=== PATIENT | male | born 1985 | race Caucasian/White ===

== ENCOUNTER 2016-09-16 14:55 | Inpatient (IN) | payer OTHER ==
[2016-09-16 16:54] VITALS: BMI 24.3
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
[2016-09-16] MEDS ORDERED: ACETAMINOPHEN 325 MG TABLET (FP) PO PRN (17:48)
[2016-09-16] MEDS ORDERED: P-EPHED 60MG/TRIPROLIDI 2.5MG TABLET PO PRN (17:48)
[2016-09-16] MEDS ORDERED: guaiFENesin/D-METHORPHAN HB 10 ML UNIT-DOSE CUPS PO PRN (17:48)
[2016-09-16] MEDS ORDERED: LOPERAMIDE HCL 2 MG CAPSULE PO PRN (17:48)
[2016-09-16] MEDS ORDERED: MENTHOL/PHENOL 1 EACH UD MM PRN (17:48)
[2016-09-16] MEDS ORDERED: MAGNESIUM HYDROX 2400MG/30ML ORAL SUSPENSION 30 ML CUP PO PRN (17:48)
[2016-09-16] MEDS ORDERED: MAG HYDROX/AL HYDROX/SIMETH 30 ML UNIT-DOSE CUP PO PRN (17:48)
[2016-09-16] MEDS ORDERED: IBUPROFEN 400 MG TABLET (FP) PO PRN (17:48)
[2016-09-16] MEDS ORDERED: diphenhydrAMINE HCL 50 MG CAPSULE PO PRN (17:48)
[2016-09-16] MEDS ORDERED: MAGNESIUM CITRATE 300 ML BOTTLE PO PRN (17:48)
[2016-09-16] MEDS ORDERED: NICOTINE POLACRILEX 4 MG GUM BC PRN (17:48)
[2016-09-16] MEDS ORDERED: ALBUTEROL SO4 6.7 GM HFA INHALER IH PRN (17:53)
[2016-09-16] MEDS ORDERED: diazePAM 5 MG TABLET PO ONE (18:45)
[2016-09-16] MEDS ORDERED: METHADONE HCL 10 MG TABLET (FOR DETOX USE ONLY) PO ONE ×2 (18:45→23:00)
--- NOTE | 2016-09-16 18:48 | CONSULT ---
[facility] Psychiatric Consult - Data Date of interview: 09/16/16 Admission source: [facility] Identifying data: Readmission to [facility] for this ## y/o male seeking detox treatment for heroin,cocaine and alcohol dependence.Patient is single,a father of one,domiciled,unemployed and supported on food stamps. Substance Abuse History: - Smoking Cessation. Smoking history: Current some day smoker. Have you smoked in the past 12 months: Yes. Aproximately how many cigarettes per day: 15. Cigars Per Day: 0. Hx Chewing Tobacco Use: No. Initiated information on smoking cessation: Yes. 'Breaking Loose' booklet given : 09/16/16. - Substance & Tx. History. Hx Alcohol Use: Yes. Hx Substance Use : Yes. Substance Use Type: Alcohol, Cocaine, Opiates. Hx Substance Use Treatment: Yes. - Substances Abused. Heroin. Route: Injection. Frequency : Daily. Amount used: 2 BUNDLES. Age of first use: 19. Date of Last Use: 02/23. Cocaine. Route: Injection. Frequency: Daily. Amount used: 2-3 bags. Age of first use: 19. Date of Last Use: 09/16/16. Alcohol. Route: Oral. Frequency: Daily. Amount used: PINT [id number] BEER. Age of first use: 19. Date of Last Use: 09/16/16. Confirmed by patient. Medical History: Hepatitis C and bronchial asthma.History of orthosurgery for fracture of right wrist (2001). Psychiatric History: Onset of psychological imbalance : age 7.Past history of Special Education.Patient reports a remote history of psychiatric hospitalizations (years ago).Diagnosed with Bipolar Disorder.Used to maintained on valproate and seroquel.Mr Garland indicates that he stopped taking seroquel due to intolerable side effects.Has been lost to follow up for several months.Not interested in resuming psychotropic medications except for zolpidem at bedtime.Not in regular OPD care since 2008 (self-report).Patient denies history of suicide attempts.No longer on methadone maintenance. Physical/Sexual Abuse/Trauma History: Patient denies. Additional Comment: Urine Drug Screen Results: HILL-Cocaine, OPI-Opiates.Noted. Mental Status Exam - Mental Status Exam Alert and Oriented to: Time, Place, Person Cognitive Function: Good Patient Appearance: Well Groomed Mood: Hopeful, Euthymic Affect: Appropriate, Normal Range Patient Behavior: Fatigued, Appropriate, Cooperative Speech Pattern: Clear, Appropriate Voice Loudness: Normal Thought Process: Goal Oriented Thought Disorder: Not Present Hallucinations: Denies Suicidal Ideation: Denies Homicidal Ideation: Denies Insight/Judgement: Poor Sleep: Poorly, Difficulty falling asleep Appetite: Good Muscle strength/Tone: Normal Gait/Station: Normal Psychiatric Findings - Problem List ([place] 1, 2,3) (1) Alcohol dependence with uncomplicated withdrawal Current Visit: Yes Status: Acute (2) Opioid dependence with withdrawal Current Visit: Yes Status: Acute (3) Cocaine dependence, uncomplicated Current Visit: Yes Status: Acute (4) Nicotine dependence Current Visit: Yes Status: Acute Qualifiers: Nicotine product type: cigarettes (5) Substance induced mood disorder Current Visit: Yes Status: Acute (6) Hepatitis C Current Visit: Yes Status: Resolved Qualifiers: Viral hepatitis chronicity: chronic Hepatic coma status: without hepatic coma Qualified Code(s): B18.2 - Chronic viral hepatitis C (7) Insomnia Current Visit: Yes Status: Acute - Initial Treatment Plan Initial Treatment Plan: Psychoeducation.Detoxification.Ambien 10 mg po hs.Patient is made aware of potential for parasomnias.He agrees with careplan.Observation.
[2016-09-16] MEDS: THIAMINE HCL 100 MG TABLET (FP) PO SCH (22:14)
[2016-09-16] MEDS: diazePAM 5 MG TABLET PO SCH (22:14)
[2016-09-16] MEDS: ZOLPIDEM TARTRATE 5 MG TABLET PO PRN (22:14)
[2016-09-17 03:02] LABS: URINE APPEARANCE CLEAR; URINE BILIRUBIN NEGATIVE (NEGATIVE); URINE BLOOD NEGATIVE (NEGATIVE); URINE COLOR YELLOW; URINE GLUCOSE (UA) NEGATIVE (NEGATIVE); URINE KETONE NEGATIVE (NEGATIVE); URINE LEUK ESTERASE NEGATIVE (NEGATIVE); URINE NITRITE NEGATIVE (NEGATIVE); URINE PROTEIN NEGATIVE (NEGATIVE); URINE UROBILINOGEN NEGATIVE E.U./dl (0.2-1.0)
[2016-09-17] MEDS: diazePAM 5 MG TABLET PO SCH ×3 (05:35→22:12)
[2016-09-17] MEDS ORDERED: METHADONE HCL 10 MG TABLET (FOR DETOX USE ONLY) PO SCH (10:00)
[2016-09-17 10:01] LABS: MCH 28.6 pg (25.7-33.7); MCHC 33.4 g/dl (32.0-35.9); MEAN CELL VOLUME 85.4 fl (80-96); MEAN PLT VOLUME 8.6 fl (7.5-11.1); PLATELET COUNT 197 K/MM3 (134-434); RDW 13.3 % (11.9-15.9); WHITE BLOOD COUNT 5.2 K/mm3 (4.0-10.0)
[2016-09-17] MEDS: PRENATAL VITAMINS W/ FOLIC ACID TABLET (FP) PO SCH (10:09)
[2016-09-17] MEDS: diazePAM 5 MG TABLET PO PRN ×2 (10:09→17:07)
[2016-09-17] MEDS: NICOTINE 21 MG/24 HOURS TOPICAL PATCH TD SCH (10:09)
[2016-09-17 10:37] LABS: ALBUMIN 3.9 g/dl (3.4-5.0); ALK PHOS 66 U/L (45-117); ANION GAP 10 (8-16); BILIRUBIN,TOTAL 0.7 mg/dL (0.2-1.0); CALCIUM 8.7 mg/dL (8.5-10.1); CO2 27 mmol/L (21-32); COCKROFT - GAULT 154.07; CREATININE 0.7 mg/dL (0.7-1.3); GLUCOSE,RANDOM 96 mg/dL (74-106); SGOT/AST 22 U/L (15-37); SGPT/ALT 22 U/L (12-78); TOT PROT 6.7 g/dl (6.4-8.2)
--- NOTE | 2016-09-17 12:17 | PN ---
S CIWA - CIWA Score Nausea/Vomitin-No Nausea/No Vomiting Muscle Tremors: 4-Moderate,w/Arms Extend Anxiety: 3 Agitation: 2 Paroxysmal Sweats: 3 Orientation: 0-Oriented Tacttile Disturbances: 1-Very Mild Itch/Numbness Auditory Disturbances: 2-Mild Harshness/Frighten Visual Disturbances: 2-Mild Sensitivity Headache: 0-None Present CIWA-Ar Total Score: 17 BHS COWS - Scale Resting Pulse: 0= [place] 80 or Below Sweatin=Flushed/Facial Moisture Restless Observation: 1= Difficult to Sit Still Pupil Size: 0= Normal to Room Light Bone or Joint Aches: 2= Severe Diffuse Aches Runny Nose/ Eye Tearin= Nasal Congestion GI Upset > 30mins: 1= Stomach Cramp Tremor Observation of Outstretched Hands: 2= Slight Tremor Visible Yawning Observation: 1= 1-2x During Session Anxiety or Irritability: 2=Irritable/Anxious Goose Flesh Skin: 3=Piloerection COWS Score: 15 BHS Progress Note (SOAP) Subjective: Tremors, Sweating, Interrupted sleep, Body aches. Objective: PT. A & O X 3, OBSERVED AMBULATING ON UNIT. 09/17/16 12:15 Vital Signs Temperature 97.6 F 09/17/16 09:16 Pulse Rate 67 09/17/16 09:16 Respiratory Rate 18 09/17/16 09:16 Blood Pressure 113/70 09/17/16 09:16 O2 Sat by Pulse Oximetry (%) Laboratory Last Values WBC 5.2 K/mm3 (4.0-10.0) 09/17/16 07:00 RBC 4.27 M/mm3 (4.00-5.60) 09/17/16 07:00 Hgb 12.2 GM/dL (11.7-16.9) 09/17/16 07:00 Hct 36.4 % (35.4-49) 09/17/16 07:00 MCV 85.4 fl (80-96) 09/17/16 07:00 MCHC 33.4 g/dl (32.0-35.9) 09/17/16 07:00 RDW 13.3 % (11.9-15.9) 09/17/16 07:00 Plt Count 197 K/MM3 (134-434) 09/17/16 07:00 MPV 8.6 fl (7.5-11.1) 09/17/16 07:00 Sodium 141 mmol/L (136-145) 09/17/16 07:00 Potassium 4.0 mmol/L (3.5-5.1) 09/17/16 07:00 Chloride 104 mmol/L (98-107) 09/17/16 07:00 Carbon Dioxide 27 mmol/L (21-32) 09/17/16 07:00 Anion Gap 10 (8-16) 09/17/16 07:00 BUN 10 mg/dL (7-18) D 09/17/16 07:00 Creatinine 0.7 mg/dL (0.7-1.3) 09/17/16 07:00 Creat Clearance w eGFR > 60 (>60) 09/17/16 07:00 Random Glucose 96 mg/dL (74-106) 09/17/16 07:00 Calcium 8.7 mg/dL (8.5-10.1) 09/17/16 07:00 Total Bilirubin 0.7 mg/dL (0.2-1.0) 09/17/16 07:00 AST 22 U/L (15-37) D 09/17/16 07:00 ALT 22 U/L (12-78) D 09/17/16 07:00 Alkaline Phosphatase 66 U/L (45-117) D 09/17/16 07:00 Total Protein 6.7 g/dl (6.4-8.2) 09/17/16 07:00 Albumin 3.9 g/dl (3.4-5.0) 09/17/16 07:00 Urine Color Yellow 09/16/16 22:57 Urine Appearance Clear 09/16/16 22:57 Urine pH 6.0 (5.0-8.0) 09/16/16 22:57 Urine Protein Negative (NEGATIVE) 09/16/16 22:57 Urine Glucose (UA) Negative (NEGATIVE) 09/16/16 22:57 Urine Ketones Negative (NEGATIVE) 09/16/16 22:57 Urine Blood Negative (NEGATIVE) 09/16/16 22:57 Urine Nitrite Negative (NEGATIVE) 09/16/16 22:57 Urine Bilirubin Negative (NEGATIVE) 09/16/16 22:57 Urine Urobilinogen Negative E.U./dl (0.2-1.0) 09/16/16 22:57 Ur Leukocyte Esterase Negative (NEGATIVE) 09/16/16 22:57 LABS NOTED. 09/17/16 12:17 Assessment: 09/17/16 12:17 WITHDRAWAL SYMPTOMS. Plan: CONTINUE DETOX. ADVISED PATIENT TO FOLLOW-UP WITH MUSIC TEACHER AFTER DISCHARGE FROM DETOX FOR GENERAL MEDICAL ASSESSMENT.
--- NOTE | 2016-09-17 12:51 | EKG ---
Test Reason : Blood Pressure : / mmHG Vent. Rate : 078 BPM Atrial Rate : 078 BPM P-R Int : 184 ms QRS Dur : 096 ms QT Int : 362 ms P-R-T Axes : 049 057 053 degrees QTc Int : 412 ms NORMAL SINUS RHYTHM NORMAL ECG NO PREVIOUS ECGS AVAILABLE Confirmed by PAVAN BLANCHARD MD ([id number]) on 09/17/2016 12:50:50 PM Referred By: Confirmed By:PAVAN BLANCHARD MD
[2016-09-17] MEDS: ZOLPIDEM TARTRATE 5 MG TABLET PO PRN (22:12)
[2016-09-17] MEDS: THIAMINE HCL 100 MG TABLET (FP) PO SCH (22:12)
[2016-09-18] MEDS: diazePAM 5 MG TABLET PO PRN ×4 (00:29→17:18)
[2016-09-18] MEDS: NICOTINE 21 MG/24 HOURS TOPICAL PATCH TD SCH (10:11)
[2016-09-18] MEDS: PRENATAL VITAMINS W/ FOLIC ACID TABLET (FP) PO SCH (10:11)
[2016-09-18] MEDS: diazePAM 5 MG TABLET PO SCH ×2 (10:12→22:09)
[2016-09-18] MEDS: METHADONE HCL 5 MG TABLET (FOR DETOX USE ONLY) PO SCH (10:12)
--- NOTE | 2016-09-18 12:53 | PN ---
[facility] CIWA - CIWA Score Nausea/Vomitin-Mild Nausea/No Vomiting Muscle Tremors: 4-Moderate,w/Arms Extend Anxiety: 4-Mod. Anxious/Guarded Agitation: 3 Paroxysmal Sweats: 3 Orientation: 0-Oriented Tacttile Disturbances: 2-Mild Itch/Numbness/Burn Auditory Disturbances: 0-None Visual Disturbances: 2-Mild Sensitivity Headache: 0-None Present CIWA-Ar Total Score: 19 S COWS - Scale Resting Pulse: 0= [place] 80 or Below Sweatin=Flushed/Facial Moisture Restless Observation: 1= Difficult to Sit Still Pupil Size: 0= Normal to Room Light Bone or Joint Aches: 1= Mild Discomfort Runny Nose/ Eye Tearin= Nasal Congestion GI Upset > 30mins: 1= Stomach Cramp Tremor Observation of Outstretched Hands: 2= Slight Tremor Visible Yawning Observation: 1= 1-2x During Session Anxiety or Irritability: 2=Irritable/Anxious Goose Flesh Skin: 3=Piloerection COWS Score: 14 S Progress Note (SOAP) Subjective: Tremors, Sweating. Objective: PT. A & O X 3, OBSERVED AMBULATING ON UNIT. 09/18/16 12:51 Vital Signs Temperature 96.1 F L 09/18/16 10:04 Pulse Rate 64 09/18/16 10:04 Respiratory Rate 18 09/18/16 10:04 Blood Pressure 112/73 09/18/16 10:04 O2 Sat by Pulse Oximetry (%) Laboratory Last Values WBC 5.2 K/mm3 (4.0-10.0) 09/17/16 07:00 RBC 4.27 M/mm3 (4.00-5.60) 09/17/16 07:00 Hgb 12.2 GM/dL (11.7-16.9) 09/17/16 07:00 Hct 36.4 % (35.4-49) 09/17/16 07:00 MCV 85.4 fl (80-96) 09/17/16 07:00 MCHC 33.4 g/dl (32.0-35.9) 09/17/16 07:00 RDW 13.3 % (11.9-15.9) 09/17/16 07:00 Plt Count 197 K/MM3 (134-434) 09/17/16 07:00 MPV 8.6 fl (7.5-11.1) 09/17/16 07:00 Sodium 141 mmol/L (136-145) 09/17/16 07:00 Potassium 4.0 mmol/L (3.5-5.1) 09/17/16 07:00 Chloride 104 mmol/L (98-107) 09/17/16 07:00 Carbon Dioxide 27 mmol/L (21-32) 09/17/16 07:00 Anion Gap 10 (8-16) 09/17/16 07:00 BUN 10 mg/dL (7-18) D 09/17/16 07:00 Creatinine 0.7 mg/dL (0.7-1.3) 09/17/16 07:00 Creat Clearance w eGFR > 60 (>60) 09/17/16 07:00 Random Glucose 96 mg/dL (74-106) 09/17/16 07:00 Calcium 8.7 mg/dL (8.5-10.1) 09/17/16 07:00 Total Bilirubin 0.7 mg/dL (0.2-1.0) 09/17/16 07:00 AST 22 U/L (15-37) D 09/17/16 07:00 ALT 22 U/L (12-78) D 09/17/16 07:00 Alkaline Phosphatase 66 U/L (45-117) D 09/17/16 07:00 Total Protein 6.7 g/dl (6.4-8.2) 09/17/16 07:00 Albumin 3.9 g/dl (3.4-5.0) 09/17/16 07:00 Urine Color Yellow 09/16/16 22:57 Urine Appearance Clear 09/16/16 22:57 Urine pH 6.0 (5.0-8.0) 09/16/16 22:57 Ur Specific [place] 1.015 (1.005-1.025) 09/16/16 22:57 Urine Protein Negative (NEGATIVE) 09/16/16 22:57 Urine Glucose (UA) Negative (NEGATIVE) 09/16/16 22:57 Urine Ketones Negative (NEGATIVE) 09/16/16 22:57 Urine Blood Negative (NEGATIVE) 09/16/16 22:57 Urine Nitrite Negative (NEGATIVE) 09/16/16 22:57 Urine Bilirubin Negative (NEGATIVE) 09/16/16 22:57 Urine Urobilinogen Negative E.U./dl (0.2-1.0) 09/16/16 22:57 Ur Leukocyte Esterase Negative (NEGATIVE) 09/16/16 22:57 RPR Titer Nonreactive (NONREACTIVE) 09/17/16 07:00 LABS NOTED. Assessment: 09/18/16 12:52 WITHDRAWAL SYMPTOMS. Plan: CONTINUE DETOX. PATIENT ADVISED TO FOLLOW-UP WITH COATING LINE WORKER AFTER DISCHARGE FROM DETOX FOR GENERAL MEDICAL ASSESSMENT.
--- NOTE | 2016-09-18 17:42 | PN ---
BHS Progress Note Note: pt refused to complete detox signed out AMA.
--- NOTE | 2016-09-18 17:42 | DS ---
[facility] Detox Discharge Summary Admission Date: 09/16/16 - Physical Exam Results Vital Signs: Vital Signs Temperature 97.4 F L 09/18/16 17:06 Pulse Rate 58 L 09/18/16 17:06 Respiratory Rate 16 09/18/16 17:06 Blood Pressure 102/62 09/18/16 17:06 O2 Sat by Pulse Oximetry (%) - Medication Discharge Medications: Ambulatory Orders NK [No Known Home Medication] 09/16/16
[2016-09-18] MEDS: ZOLPIDEM TARTRATE 5 MG TABLET PO PRN (22:09)
[2016-09-18] MEDS: THIAMINE HCL 100 MG TABLET (FP) PO SCH (22:09)
[2016-09-19] MEDS: diazePAM 5 MG TABLET PO PRN (08:45)
[2016-09-19] MEDS: METHADONE HCL 5 MG TABLET (FOR DETOX USE ONLY) PO SCH (10:08)
[2016-09-19] MEDS: NICOTINE 21 MG/24 HOURS TOPICAL PATCH TD SCH (10:08)
[2016-09-19] MEDS: diazePAM 5 MG TABLET PO SCH (10:08)
[2016-09-19] MEDS: PRENATAL VITAMINS W/ FOLIC ACID TABLET (FP) PO SCH (10:08)
[2016-09-19 10:49] VITALS: BP 123/80; PULSE 58; TEMP 96.1
--- NOTE | 2016-09-19 13:46 | DS ---
[facility] Detox Discharge Summary Admission Date: 09/16/16 Discharge Date: 09/19/16 - History Present History: Alcohol Dependence, Cocaine Dependence, Opioid Dependence Additional Comments: ADVISED PATIENT TO FOLLOW-UP WITH [facility] FOR GENERAL MEDICAL ASSESSMENT AND FOR ABNORMAL ADMISSION LAB VALUEs. Pertinent Past History: Asthma, Hep C, Bipolar Disorder. - Physical Exam Results Vital Signs: Vital Signs Temperature 96.1 F L 09/19/16 10:37 Pulse Rate 58 L 09/19/16 10:37 Respiratory Rate 18 09/19/16 10:37 Blood Pressure 123/80 09/19/16 10:37 O2 Sat by Pulse Oximetry (%) Pertinent Admission Physical Exam Findings: WITHDRAWAL SYMPTOMS. Laboratory Last Values WBC 5.2 K/mm3 (4.0-10.0) 09/17/16 07:00 RBC 4.27 M/mm3 (4.00-5.60) 09/17/16 07:00 Hgb 12.2 GM/dL (11.7-16.9) 09/17/16 07:00 Hct 36.4 % (35.4-49) 09/17/16 07:00 MCV 85.4 fl (80-96) 09/17/16 07:00 MCHC 33.4 g/dl (32.0-35.9) 09/17/16 07:00 RDW 13.3 % (11.9-15.9) 09/17/16 07:00 Plt Count 197 K/MM3 (134-434) 09/17/16 07:00 MPV 8.6 fl (7.5-11.1) 09/17/16 07:00 Sodium 141 mmol/L (136-145) 09/17/16 07:00 Potassium 4.0 mmol/L (3.5-5.1) 09/17/16 07:00 Chloride 104 mmol/L (98-107) 09/17/16 07:00 Carbon Dioxide 27 mmol/L (21-32) 09/17/16 07:00 Anion Gap 10 (8-16) 09/17/16 07:00 BUN 10 mg/dL (7-18) D 09/17/16 07:00 Creatinine 0.7 mg/dL (0.7-1.3) 09/17/16 07:00 Creat Clearance w eGFR > 60 (>60) 09/17/16 07:00 Random Glucose 96 mg/dL (74-106) 09/17/16 07:00 Calcium 8.7 mg/dL (8.5-10.1) 09/17/16 07:00 Total Bilirubin 0.7 mg/dL (0.2-1.0) 09/17/16 07:00 AST 22 U/L (15-37) D 09/17/16 07:00 ALT 22 U/L (12-78) D 09/17/16 07:00 Alkaline Phosphatase 66 U/L (45-117) D 09/17/16 07:00 Total Protein 6.7 g/dl (6.4-8.2) 09/17/16 07:00 Albumin 3.9 g/dl (3.4-5.0) 09/17/16 07:00 Urine Color Yellow 09/16/16 22:57 Urine Appearance Clear 09/16/16 22:57 Urine pH 6.0 (5.0-8.0) 09/16/16 22:57 Ur Specific [place] 1.015 (1.005-1.025) 09/16/16 22:57 Urine Protein Negative (NEGATIVE) 09/16/16 22:57 Urine Glucose (UA) Negative (NEGATIVE) 09/16/16 22:57 Urine Ketones Negative (NEGATIVE) 09/16/16 22:57 Urine Blood Negative (NEGATIVE) 09/16/16 22:57 Urine Nitrite Negative (NEGATIVE) 09/16/16 22:57 Urine Bilirubin Negative (NEGATIVE) 09/16/16 22:57 Urine Urobilinogen Negative E.U./dl (0.2-1.0) 09/16/16 22:57 Ur Leukocyte Esterase Negative (NEGATIVE) 09/16/16 22:57 RPR Titer Nonreactive (NONREACTIVE) 09/17/16 07:00 LABS NOTED. - Treatment Hospital Course: Detoxed Safely - Medication Discharge Medications: Ambulatory Orders NK [No Known Home Medication] 09/16/16 - Diagnosis (1) Alcohol dependence with uncomplicated withdrawal Status: Acute (2) Cocaine dependence, uncomplicated Status: Acute (3) Insomnia Status: Chronic Qualifiers: Insomnia type: unspecified Qualified Code(s): G47.00 - Insomnia, unspecified (4) Nicotine dependence Status: Chronic Qualifiers: Nicotine product type: cigarettes Substance use status: uncomplicated Qualified Code(s): F17.210 - Nicotine dependence, cigarettes, uncomplicated (5) Opioid dependence with withdrawal Status: Acute (6) Substance induced mood disorder Status: Acute (7) Asthma Status: Chronic - AMA Did Patient Leave Against Medical Advice: Yes (PATIENT DID NOT WEANT TO STAY TO COMPLETE DETOX REGIMEN.)
[2016-09-20] MEDS ORDERED: METHADONE HCL 10 MG TABLET (FOR DETOX USE ONLY) PO SCH (10:00)
[2016-09-20] MEDS ORDERED: diazePAM 5 MG TABLET PO SCH (10:00)
[2016-09-21] MEDS ORDERED: METHADONE HCL 5 MG TABLET (FOR DETOX USE ONLY) PO SCH (06:00)
== END 2016-09-19 11:20 | disposition left against medical advice (07) | DRG 770 ==
LOC: YASAS 14:55 → Y3N 17:50
PROVIDERS: ADMIT Internal Medicine Addiction Medicine; ATTEND Internal Medicine Addiction Medicine
PROC: HZ2ZZZZ Detoxification Services for Substance Abuse Treatment (ICD-10-PCS; principal; 2016-09-19)
DX: F11.23 Opioid dependence with withdrawal (principal); F10.230 Alcohol dependence with withdrawal, uncomplicated; F14.20 Cocaine dependence, uncomplicated; F17.210 Nicotine dependence, cigarettes, uncomplicated; F19.24 Other psychoactive substance dependence with psychoactive substance-induced mood disorder; F31.89 Other bipolar disorder; J45.20 Mild intermittent asthma, uncomplicated; G47.00 Insomnia, unspecified
CPT/HCPCS: 36415; 80053; 81003; 85027; 86593; 93005; 93010

== ENCOUNTER 2018-06-08 13:48 | Inpatient (IN) | payer OTHER ==
[2018-06-08 14:02] VITALS: BMI 21.1
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
[2018-06-08] MEDS ORDERED: MAGNESIUM CITRATE 300 ML BOTTLE PO PRN (15:10)
[2018-06-08] MEDS ORDERED: MAG HYDROX/AL HYDROX/SIMETH 30 ML UNIT-DOSE CUP PO PRN (15:10)
[2018-06-08] MEDS ORDERED: MAGNESIUM HYDROX 2400MG/30ML ORAL SUSPENSION 30 ML CUP PO PRN (15:10)
[2018-06-08] MEDS ORDERED: guaiFENesin/D-METHORPHAN HB 10 ML UNIT-DOSE CUPS PO PRN (15:10)
[2018-06-08] MEDS ORDERED: chlordiazePOXIDE HCL 25 MG CAPSULE PO PRN (15:10)
[2018-06-08] MEDS ORDERED: P-EPHED 60MG/TRIPROLIDI 2.5MG TABLET PO PRN (15:10)
[2018-06-08] MEDS ORDERED: ACETAMINOPHEN 325 MG TABLET (FP) PO PRN (15:10)
[2018-06-08] MEDS ORDERED: IBUPROFEN 400 MG TABLET (FP) PO PRN (15:10)
[2018-06-08] MEDS ORDERED: MENTHOL/PHENOL 1 EACH UD MM PRN (15:10)
[2018-06-08] MEDS ORDERED: ALBUTEROL SO4 0.083% IH SOL 2.5 MG/3 ML VIAL.NEB. NEB PRN (15:12)
[2018-06-08] MEDS: chlordiazePOXIDE HCL 25 MG CAPSULE PO SCH ×2 (18:41→22:32)
[2018-06-08] MEDS: MELATONIN 5 MG TABLETS PO PRN (22:33)
[2018-06-08] MEDS: THIAMINE HCL 100 MG TABLET (FP) PO SCH (22:33)
[2018-06-08] MEDS ORDERED: METHADONE HCL 10 MG TABLET (FOR DETOX USE ONLY) PO ONE (23:00)
[2018-06-09] MEDS: chlordiazePOXIDE HCL 25 MG CAPSULE PO SCH ×4 (05:42→22:12)
[2018-06-09] MEDS ORDERED: METHADONE HCL 10 MG TABLET (FOR DETOX USE ONLY) PO ONE (06:22)
[2018-06-09] MEDS ORDERED: hydrOXYzine PAMOATE 50 MG CAPSULE (FP) PO PRN (07:11)
--- NOTE | 2018-06-09 07:34 | PN ---
S Progress Note Note: c/o worsening withdrawal sx's, shakes, sweats, restlessness, irritability, interrupted sleep. "i am dope sick" Vital Signs Temperature 100.6 F H 06/09/18 06:32 Pulse Rate 79 06/09/18 06:32 Respiratory Rate 18 06/09/18 06:32 Blood Pressure 126/68 06/09/18 06:32 O2 Sat by Pulse Oximetry (%) awake alert irritability wants to leave so he can get a bag of "dope" withdrawal sx's p- methadone 10 mg x 1 vistaril 50 mg q4 hours prn motrin/tylenol for pain/fever cont to monitor clinically. client vomitted x 1 after being medicated with methadone tigan 200 mg im q8 hr prn first dose now
[2018-06-09] MEDS: TRIMETHOBENZAMIDE HCL 200MG/2ML INJ IM PRN (07:43)
--- NOTE | 2018-06-09 09:29 | PN ---
[facility] CIWA - CIWA Score Nausea/Vomitin-Mild Nausea/No Vomiting Muscle Tremors: 4-Moderate,w/Arms Extend Anxiety: 2 Agitation: 3 Paroxysmal Sweats: 1-Minimal Palms Moist Orientation: 1-Uncertain about Date Tacttile Disturbances: 0-None Auditory Disturbances: 0-None Visual Disturbances: 0-None Headache: 2-Mild CIWA-Ar Total Score: 14 BHS COWS - Scale Resting Pulse: 0= [place] 80 or Below Sweatin= Chills/Flushing Restless Observation: 0= Sits Still Pupil Size: 0= Normal to Room Light Bone or Joint Aches: 2= Severe Diffuse Aches Runny Nose/ Eye Tearin= Nasal Congestion GI Upset > 30mins: 2= Nausea/Diarrhea Tremor Observation of Outstretched Hands: 2= Slight Tremor Visible Yawning Observation: 1= 1-2x During Session Anxiety or Irritability: 2=Irritable/Anxious Goose Flesh Skin: 0=Smooth Skin COWS Score: 11 [facility] Progress Note (SOAP) Subjective: tremor sweating body aches joints pain restlessness irritable agitative Objective: 06/09/18 09:29 Vital Signs Temperature 99.4 F 06/09/18 09:11 Pulse Rate 97 H 06/09/18 09:11 Respiratory Rate 20 06/09/18 09:11 Blood Pressure 135/63 06/09/18 09:11 O2 Sat by Pulse Oximetry (%) 06/09/18 09:29 lab pending Assessment: 06/09/18 09:29 withdrawal sx Plan: continue detox
[2018-06-09] MEDS ORDERED: METHADONE HCL 10 MG TABLET (FOR DETOX USE ONLY) PO SCH (10:00)
[2018-06-09 10:36] LABS: HEMATOCRIT 36.2 % (35.4-49); HEMOGLOBIN 11.7 GM/dL (11.7-16.9); MCH 26.9 pg (25.7-33.7); MCHC 32.3 g/dl (32.0-35.9); MEAN CELL VOLUME 83.4 fl (80-96); MEAN PLT VOLUME 8.5 fl (7.5-11.1); PLATELET COUNT 380 K/MM3 (134-434); RBC 4.34 M/mm3 (4.00-5.60); WHITE BLOOD COUNT 15.1 K/mm3 (4.0-10.0)
[2018-06-09] MEDS: PRENATAL VITAMINS W/ FOLIC ACID TABLET (FP) PO SCH (10:59)
[2018-06-09 11:15] LABS: ALBUMIN 3.1 g/dl (3.4-5.0); ALK PHOS 98 U/L (45-117); ANION GAP 10 MMOL/L (8-16); BILIRUBIN,TOTAL 0.9 mg/dL (0.2-1); BLOOD UREA NITROGEN 13 mg/dL (7-18); CALCIUM 8.7 mg/dL (8.5-10.1); CHLORIDE 98 mmol/L (98-107); CO2 28 mmol/L (21-32); CREATININE 0.8 mg/dL (0.55-1.3); GLUCOSE,RANDOM 98 mg/dL (74-106); POTASSIUM 3.8 mmol/L (3.5-5.1); SGOT/AST 19 U/L (15-37); SGPT/ALT 16 U/L (13-61); SODIUM 135 mmol/L (136-145); TOT PROT 7.9 g/dl (6.4-8.2)
[2018-06-09] MEDS: MELATONIN 5 MG TABLETS PO PRN (22:12)
[2018-06-09] MEDS: THIAMINE HCL 100 MG TABLET (FP) PO SCH (22:12)
[2018-06-10] MEDS: chlordiazePOXIDE HCL 25 MG CAPSULE PO SCH ×2 (05:51→10:12)
[2018-06-10] MEDS: TRIMETHOBENZAMIDE HCL 200MG/2ML INJ IM PRN (07:05)
[2018-06-10] MEDS: CYCLOBENZAPRINE HCL 5 MG TABLET PO SCH ×3 (07:41→22:40)
[2018-06-10] MEDS ORDERED: METHADONE DETOX 10 MG/1 ML [20ML VIAL] IM ONE (10:00)
[2018-06-10] MEDS ORDERED: METHADONE HCL 5 MG TABLET (FOR DETOX USE ONLY) PO SCH (10:00)
[2018-06-10] MEDS: PRENATAL VITAMINS W/ FOLIC ACID TABLET (FP) PO SCH (10:11)
[2018-06-10 12:34] LABS: BASO % 0.5 % (0-2.0); EOS % 0.7 % (0-4.5); HEMATOCRIT 35.5 % (35.4-49); HEMOGLOBIN 11.5 GM/dL (11.7-16.9); LYMPH % 12.5 % (8-40); MCH 26.7 pg (25.7-33.7); MCHC 32.4 g/dl (32.0-35.9); MEAN CELL VOLUME 82.5 fl (80-96); MEAN PLT VOLUME 7.7 fl (7.5-11.1); MONO % 6.6 % (3.8-10.2); NEUT % 79.7 % (42.8-82.8); PLATELET COUNT 394 K/MM3 (134-434); RDW 14.6 % (11.9-15.9); WHITE BLOOD COUNT 13.7 K/mm3 (4.0-10.0)
[2018-06-10 13:00] LABS: AMYLASE 57 U/L (25-115); ANION GAP 6 MMOL/L (8-16); BLOOD UREA NITROGEN 12 mg/dL (7-18); CALCIUM 8.4 mg/dL (8.5-10.1); CHLORIDE 102 mmol/L (98-107); CO2 28 mmol/L (21-32); CREATININE 0.7 mg/dL (0.55-1.3); GLUCOSE,RANDOM 92 mg/dL (74-106); LIPASE 127 U/L (73-393); POTASSIUM 4.3 mmol/L (3.5-5.1); SGOT/AST 20 U/L (15-37); SGPT/ALT 17 U/L (13-61); SODIUM 137 mmol/L (136-145)
--- NOTE | 2018-06-10 16:55 | PN ---
S CIWA - CIWA Score Nausea/Vomitin-No Nausea/No Vomiting Muscle Tremors: 3 Anxiety: 3 Agitation: 1-Slight > Activity Paroxysmal Sweats: 3 Orientation: 2-Disoriented Date<2 days Tacttile Disturbances: 1-Very Mild Itch/Numbness Auditory Disturbances: 0-None Visual Disturbances: 2-Mild Sensitivity Headache: 0-None Present CIWA-Ar Total Score: 15 BHS COWS - Scale Resting Pulse: 1= [place] 81-100 Sweatin= Chills/Flushing Restless Observation: 1= Difficult to Sit Still Pupil Size: 0= Normal to Room Light Bone or Joint Aches: 2= Severe Diffuse Aches Runny Nose/ Eye Tearin= None GI Upset > 30mins: 2= Nausea/Diarrhea Tremor Observation of Outstretched Hands: 0= None Yawning Observation: 0= None Anxiety or Irritability: 2=Irritable/Anxious Goose Flesh Skin: 3=Piloerection COWS Score: 12 [facility] Progress Note (SOAP) Subjective: Interrupted Sleep, Anxious, Nausea, Sweating, Body Aches. Objective: PATIENT A & O X 2 (UNCERTAIN ABOUT CURRENT DAY / DATE). PATIENT OBSERVED AMBULATING ON UNIT. IN NO ACUTE DISTRESS. PATIENT AFEBRILE. 06/10/18 16:53 Vital Signs Temperature 99.3 F 06/10/18 13:10 Pulse Rate 98 H 06/10/18 13:10 Respiratory Rate 18 06/10/18 13:10 Blood Pressure 123/73 06/10/18 13:10 O2 Sat by Pulse Oximetry (%) Laboratory Tests 06/09/18 06/09/18 06/09/18 06:00 06:00 06:00 WBC 15.1 H RBC 4.34 Hgb 11.7 Hct 36.2 MCV 83.4 MCH 26.9 MCHC 32.3 RDW 14.0 Plt Count 380 D MPV 8.5 Absolute Neuts (auto) Neutrophils % Lymphocytes % Monocytes % Eosinophils % Basophils % Nucleated RBC % Sodium 135 L Potassium 3.8 Chloride 98 Carbon Dioxide 28 Anion Gap 10 BUN 13 Creatinine 0.8 Creat Clearance w eGFR > 60 Random Glucose 98 Calcium 8.7 Total Bilirubin 0.9 AST 19 ALT 16 Alkaline Phosphatase 98 Total Protein 7.9 Albumin 3.1 L Total Amylase Lipase RPR Titer Nonreactive 06/10/18 06/10/18 10:59 10:59 WBC 13.7 H RBC 4.30 Hgb 11.5 L Hct 35.5 MCV 82.5 MCH 26.7 MCHC 32.4 RDW 14.6 Plt Count 394 MPV 7.7 Absolute Neuts (auto) 11.0 H Neutrophils % 79.7 Lymphocytes % 12.5 Monocytes % 6.6 Eosinophils % 0.7 Basophils % 0.5 Nucleated RBC % 0 Sodium 137 Potassium 4.3 Chloride 102 Carbon Dioxide 28 Anion Gap 6 L BUN 12 Creatinine 0.7 Creat Clearance w eGFR > 60 Random Glucose 92 Calcium 8.4 L Total Bilirubin AST 20 ALT 17 Alkaline Phosphatase Total Protein Albumin Total Amylase 57 Lipase 127 RPR Titer LABS NOTED. RESULTS OF REPEAT CBC AND CMP NOTED. WBC LEVEL NOTED TO BE LOWER ON REPEAT CBC IN COMPARISON TO ADMISSION CBC. HIV AB RESULT PENDING. 06/10/18 16:57 Assessment: 06/10/18 16:54 WITHDRAWAL SYMPTOMS. Plan: CONTINUE DETOX. INCREASE DAILY PO FLUID INTAKE. REPEAT CBC TOMORROW AM TO SEE IF ANY FURTHER IMPROVEMENT IN WBC COUNT.
[2018-06-10] MEDS: chlordiazePOXIDE 5 MG CAPSULE PO SCH ×2 (17:25→22:40)
[2018-06-10] MEDS: THIAMINE HCL 100 MG TABLET (FP) PO SCH (22:39)
[2018-06-10] MEDS: MELATONIN 5 MG TABLETS PO PRN (22:40)
[2018-06-11] MEDS: CYCLOBENZAPRINE HCL 5 MG TABLET PO SCH (06:06)
[2018-06-11] MEDS: chlordiazePOXIDE 5 MG CAPSULE PO SCH (06:06)
[2018-06-11 06:09] VITALS: BP 106/62; PULSE 89; TEMP 96.9
--- NOTE | 2018-06-11 06:47 | DS ---
[facility] Detox Discharge Summary Admission Date: 06/08/18 Discharge Date: 06/11/18 - History Additional Comments: Patient is being involuntarily discharged for inappropriate behavior and disorderly conduct. This discharge was approved by the director Estephania Haleigh Hernandez. Patient broke open a locked garbage can and took out all the used patient's medication cups and took it back to his room. Nursing alteration workroom supervisor and Security called. With security on the unit patient was observed sitting on the toilet licking the used medication cups. Nursing alteration workroom supervisor aware. Pertinent Past History: Alcohol dependence, opioid dependence, Hep C and asthma - Physical Exam Results Vital Signs: Vital Signs Temperature 96.9 F L 06/11/18 06:09 Pulse Rate 89 06/11/18 06:09 Respiratory Rate 16 06/11/18 06:09 Blood Pressure 106/62 06/11/18 06:09 O2 Sat by Pulse Oximetry (%) Laboratory Last Values WBC 13.7 K/mm3 (4.0-10.0) H 06/10/18 10:59 RBC 4.30 M/mm3 (4.00-5.60) 06/10/18 10:59 Hgb 11.5 GM/dL (11.7-16.9) L 06/10/18 10:59 Hct 35.5 % (35.4-49) 06/10/18 10:59 MCV 82.5 fl (80-96) 06/10/18 10:59 MCH 26.7 pg (25.7-33.7) 06/10/18 10:59 MCHC 32.4 g/dl (32.0-35.9) 06/10/18 10:59 RDW 14.6 % (11.9-15.9) 06/10/18 10:59 Plt Count 394 K/MM3 (134-434) 06/10/18 10:59 MPV 7.7 fl (7.5-11.1) 06/10/18 10:59 Absolute Neuts (auto) 11.0 K/mm3 (1.5-8.0) H 06/10/18 10:59 Neutrophils % 79.7 % (42.8-82.8) 06/10/18 10:59 Lymphocytes % 12.5 % (8-40) 06/10/18 10:59 Monocytes % 6.6 % (3.8-10.2) 06/10/18 10:59 Eosinophils % 0.7 % (0-4.5) 06/10/18 10:59 Basophils % 0.5 % (0-2.0) 06/10/18 10:59 Nucleated RBC % 0 % (0-0) 06/10/18 10:59 Sodium 137 mmol/L (136-145) 06/10/18 10:59 Potassium 4.3 mmol/L (3.5-5.1) 06/10/18 10:59 Chloride 102 mmol/L (98-107) 06/10/18 10:59 Carbon Dioxide 28 mmol/L (21-32) 06/10/18 10:59 Anion Gap 6 MMOL/L (8-16) L 06/10/18 10:59 BUN 12 mg/dL (7-18) 06/10/18 10:59 Creatinine 0.7 mg/dL (0.55-1.3) 06/10/18 10:59 Creat Clearance w eGFR > 60 (>60) 06/10/18 10:59 Random Glucose 92 mg/dL (74-106) 06/10/18 10:59 Calcium 8.4 mg/dL (8.5-10.1) L 06/10/18 10:59 Total Bilirubin 0.9 mg/dL (0.2-1) 06/09/18 06:00 AST 20 U/L (15-37) 06/10/18 10:59 ALT 17 U/L (13-61) 06/10/18 10:59 Alkaline Phosphatase 98 U/L (45-117) 06/09/18 06:00 Total Protein 7.9 g/dl (6.4-8.2) 06/09/18 06:00 Albumin 3.1 g/dl (3.4-5.0) L 06/09/18 06:00 Total Amylase 57 U/L (25-115) 06/10/18 10:59 Lipase 127 U/L (73-393) 06/10/18 10:59 RPR Titer Nonreactive (NONREACTIVE) 06/09/18 06:00 Pertinent Admission Physical Exam Findings: withdrawal symptoms - Medication Discharge Medications: Ambulatory Orders NK [No Known Home Medication] 06/08/18 - Diagnosis (1) Opioid dependence with withdrawal Status: Acute (2) Alcohol dependence with withdrawal Status: Chronic Qualifiers: Complication of substance-induced condition: uncomplicated Qualified Code(s ): F10.230 - Alcohol dependence with withdrawal, uncomplicated (3) Asthma Status: Chronic (4) Cocaine dependence with withdrawal Status: Chronic (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
[2018-06-11] MEDS ORDERED: METHADONE HCL 10 MG TABLET (FOR DETOX USE ONLY) PO SCH (10:00)
[2018-06-11] MEDS ORDERED: chlordiazePOXIDE HCL 10 MG CAPSULE PO SCH (17:00)
[2018-06-12] MEDS ORDERED: METHADONE HCL 5 MG TABLET (FOR DETOX USE ONLY) PO SCH (06:00)
== END 2018-06-11 06:36 | disposition left against medical advice (07) | DRG 773 ==
LOC: YASAS 13:48 → Y3N 17:56
PROVIDERS: ADMIT Neuromusculoskeletal Medicine & OMM; ATTEND Neuromusculoskeletal Medicine & OMM
PROC: HZ2ZZZZ Detoxification Services for Substance Abuse Treatment (ICD-10-PCS; principal; 2018-06-08)
DX: F11.23 Opioid dependence with withdrawal (principal); F10.230 Alcohol dependence with withdrawal, uncomplicated; F13.230 Sedative, hypnotic or anxiolytic dependence with withdrawal, uncomplicated; F14.20 Cocaine dependence, uncomplicated; F17.210 Nicotine dependence, cigarettes, uncomplicated; F91.8 Other conduct disorders; J45.909 Unspecified asthma, uncomplicated; B18.2 Chronic viral hepatitis C; Z91.14 Patient's other noncompliance with medication regimen
CPT/HCPCS: 36415; 80048; 80053; 82150; 83690; 84450; 84460; 85025; 85027; 86593; 87389

== ENCOUNTER 2018-08-29 14:19 | Inpatient (IN) | payer OTHER ==
[2018-08-29 19:33] VITALS: BMI 22.0
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
[2018-08-29] MEDS ORDERED: chlordiazePOXIDE HCL 25 MG CAPSULE PO PRN (21:17)
[2018-08-29] MEDS ORDERED: MAGNESIUM HYDROX 2400MG/30ML ORAL SUSPENSION 30 ML CUP PO PRN (21:17)
[2018-08-29] MEDS ORDERED: MENTHOL/PHENOL 1 EACH UD MM PRN (21:17)
[2018-08-29] MEDS ORDERED: MAG HYDROX/AL HYDROX/SIMETH 30 ML UNIT-DOSE CUP PO PRN (21:17)
[2018-08-29] MEDS ORDERED: MELATONIN 5 MG TABLETS PO PRN (21:17)
[2018-08-29] MEDS ORDERED: BISMUTH SUBSALICYLATE 524 MG/30 ML UD PO PRN (21:17)
[2018-08-29] MEDS ORDERED: hydrOXYzine PAMOATE 25 MG CAPSULE (FP) PO PRN (21:17)
[2018-08-29] MEDS ORDERED: MAGNESIUM CITRATE 300 ML BOTTLE PO PRN (21:17)
[2018-08-29] MEDS ORDERED: IBUPROFEN 400 MG TABLET (FP) PO PRN (21:17)
[2018-08-29] MEDS ORDERED: ACETAMINOPHEN 325 MG TABLET (FP) PO PRN ×2 (21:17)
[2018-08-29] MEDS: chlordiazePOXIDE HCL 25 MG CAPSULE PO SCH (22:30)
[2018-08-29] MEDS: THIAMINE HCL 100 MG TABLET (FP) PO SCH (22:30)
[2018-08-29] MEDS ORDERED: METHADONE HCL 10 MG TABLET (FOR DETOX USE ONLY) PO ONE (23:00)
[2018-08-30] MEDS: chlordiazePOXIDE HCL 25 MG CAPSULE PO SCH ×2 (06:41→10:31)
[2018-08-30] MEDS ORDERED: METHADONE HCL 10 MG TABLET (FOR DETOX USE ONLY) PO ONE (10:00)
[2018-08-30] MEDS: PRENATAL VITAMINS W/ FOLIC ACID TABLET (FP) PO SCH (10:31)
--- NOTE | 2018-08-30 13:32 | PN ---
[facility] CIWA - CIWA Score Nausea/Vomitin-No Nausea/No Vomiting Muscle Tremors: 4-Moderate,w/Arms Extend Anxiety: 4-Mod. Anxious/Guarded Agitation: 4-Moderately Restless Paroxysmal Sweats: 3 Orientation: 0-Oriented Tacttile Disturbances: 0-None Auditory Disturbances: 0-None Visual Disturbances: 0-None Headache: 0-None Present CIWA-Ar Total Score: 15 [facility] COWS - Scale Resting Pulse: 1= [place] 81-100 Sweatin=Flushed/Facial Moisture Restless Observation: 1= Difficult to Sit Still Pupil Size: 0= Normal to Room Light Bone or Joint Aches: 2= Severe Diffuse Aches Runny Nose/ Eye Tearin= Runny Nose/Eyes GI Upset > 30mins: 0= None Tremor Observation of Outstretched Hands: 2= Slight Tremor Visible Yawning Observation: 2= >3x During Session Anxiety or Irritability: 2=Irritable/Anxious Goose Flesh Skin: 3=Piloerection COWS Score: 17 [facility] Progress Note (SOAP) Subjective: irritable agitation anxiety sweats chills body aches interrupted sleep restless Objective: 08/30/18 13:30 Vital Signs Temperature 98.1 F 08/30/18 13:14 Pulse Rate 69 08/30/18 13:14 Respiratory Rate 18 08/30/18 13:14 Blood Pressure 138/63 08/30/18 13:14 O2 Sat by Pulse Oximetry (%) labs ordered aaox3 lying in bed no acute distress Assessment: 08/30/18 13:32 withdrawal sx Plan: continue detox increase fluids pending labs
[2018-08-30] MEDS: METHOCARBAMOL 500 MG TABLET PO PRN ×2 (13:54→22:37)
[2018-08-30] MEDS: BACLOFEN 10 MG TABLET (FP) PO SCH ×2 (15:48→22:38)
--- NOTE | 2018-08-30 16:29 | PN ---
S Progress Note Note: patient missed midday dose of baclofen and is requesting medication. One time dose ordered. continue to monitor
[2018-08-30] MEDS: diazePAM 5 MG TABLET PO PRN (16:43)
[2018-08-30] MEDS ORDERED: BACLOFEN 10 MG TABLET (FP) PO ONE (17:00)
[2018-08-30] MEDS: diazePAM 5 MG TABLET PO SCH (22:38)
[2018-08-30] MEDS: THIAMINE HCL 100 MG TABLET (FP) PO SCH (22:38)
[2018-08-30] MEDS ORDERED: chlordiazePOXIDE HCL 25 MG CAPSULE PO SCH (23:00)
[2018-08-31] MEDS: diazePAM 5 MG TABLET PO SCH ×3 (06:26→21:27)
[2018-08-31] MEDS: BACLOFEN 10 MG TABLET (FP) PO SCH ×3 (06:26→21:26)
[2018-08-31] MEDS ORDERED: METHADONE HCL 10 MG TABLET (FOR DETOX USE ONLY) PO ONE (10:00)
[2018-08-31] MEDS: PRENATAL VITAMINS W/ FOLIC ACID TABLET (FP) PO SCH (10:02)
--- NOTE | 2018-08-31 11:23 | PN ---
[facility] CIWA - CIWA Score Nausea/Vomitin-No Nausea/No Vomiting Muscle Tremors: 3 Anxiety: 3 Agitation: 3 Paroxysmal Sweats: 2 Orientation: 0-Oriented Tacttile Disturbances: 0-None Auditory Disturbances: 0-None Visual Disturbances: 0-None Headache: 0-None Present CIWA-Ar Total Score: 11 [facility] COWS - Scale Resting Pulse: 0= [place] 80 or Below Sweatin=Flushed/Facial Moisture Restless Observation: 1= Difficult to Sit Still Pupil Size: 0= Normal to Room Light Bone or Joint Aches: 2= Severe Diffuse Aches Runny Nose/ Eye Tearin= Nasal Congestion GI Upset > 30mins: 1= Stomach Cramp Tremor Observation of Outstretched Hands: 2= Slight Tremor Visible Yawning Observation: 2= >3x During Session Anxiety or Irritability: 2=Irritable/Anxious Goose Flesh Skin: 0=Smooth Skin COWS Score: 13 S Progress Note (SOAP) Subjective: sweats irritable agitation anxiety body aches interrupted sleep Objective: 08/31/18 11:22 Vital Signs Temperature 98.2 F 08/31/18 10:29 Pulse Rate 66 08/31/18 10:29 Respiratory Rate 16 08/31/18 10:29 Blood Pressure 117/67 08/31/18 10:29 O2 Sat by Pulse Oximetry (%) reordered labs pt agreed to have his labs drawn today or tomorrow aaox3 ambulating no acute distress Assessment: 08/31/18 11:22 withdrawal sx Plan: continue detox increase fluids pending lab results
[2018-08-31] MEDS: cloNIDine HCL 0.1 MG TABLET PO PRN ×2 (16:44→23:37)
[2018-08-31] MEDS: diazePAM 5 MG TABLET PO PRN (20:53)
[2018-08-31] MEDS: THIAMINE HCL 100 MG TABLET (FP) PO SCH (21:28)
[2018-08-31] MEDS ORDERED: chlordiazePOXIDE HCL 10 MG CAPSULE PO SCH (23:00)
[2018-08-31] MEDS ORDERED: chlordiazePOXIDE HCL 10 MG CAPSULE PO PRN (23:00)
[2018-09-01] MEDS: BACLOFEN 10 MG TABLET (FP) PO SCH (06:22)
[2018-09-01] MEDS: diazePAM 5 MG TABLET PO PRN (06:25)
[2018-09-01] MEDS ORDERED: cloNIDine HCL 0.1 MG TABLET PO PRN (08:49)
[2018-09-01 09:11] VITALS: BP 117/66; PULSE 86; TEMP 97.3
[2018-09-01] MEDS: PRENATAL VITAMINS W/ FOLIC ACID TABLET (FP) PO SCH (09:51)
[2018-09-01] MEDS ORDERED: METHADONE HCL 10 MG TABLET (FOR DETOX USE ONLY) PO ONE (10:00)
[2018-09-01] MEDS ORDERED: diazePAM 5 MG TABLET PO SCH (10:00)
[2018-09-01 10:20] LABS: ALBUMIN 3.6 g/dl (3.4-5.0); ALK PHOS 92 U/L (45-117); ANION GAP 8 MMOL/L (8-16); BILIRUBIN,TOTAL 0.6 mg/dL (0.2-1); BLOOD UREA NITROGEN 12 mg/dL (7-18); CALCIUM 8.8 mg/dL (8.5-10.1); CHLORIDE 105 mmol/L (98-107); CO2 26 mmol/L (21-32); CREATININE 0.8 mg/dL (0.55-1.3); GLUCOSE,RANDOM 75 mg/dL (74-106); POTASSIUM 4.3 mmol/L (3.5-5.1); SGOT/AST 17 U/L (15-37); SGPT/ALT 22 U/L (13-61); SODIUM 139 mmol/L (136-145); TOT PROT 8.3 g/dl (6.4-8.2)
[2018-09-01 10:21] LABS: BASO % 0.4 % (0-2.0); EOS % 2.9 % (0-4.5); HEMATOCRIT 35.6 % (35.4-49); HEMOGLOBIN 11.5 GM/dL (11.7-16.9); LYMPH % 33.4 % (8-40); MCH 26.5 pg (25.7-33.7); MCHC 32.2 g/dl (32.0-35.9); MEAN CELL VOLUME 82.2 fl (80-96); MEAN PLT VOLUME 7.7 fl (7.5-11.1); MONO % 7.6 % (3.8-10.2); NEUT % 55.7 % (42.8-82.8); PLATELET COUNT 272 K/MM3 (134-434); RBC 4.34 M/mm3 (4.00-5.60); RDW 14.9 % (11.9-15.9); WHITE BLOOD COUNT 6.6 K/mm3 (4.0-10.0)
--- NOTE | 2018-09-01 10:36 | DS ---
[facility] Detox Discharge Summary Admission Date: 08/29/18 Discharge Date: 09/01/18 - History Present History: Alcohol Dependence, Cocaine Dependence, Opioid Dependence - Physical Exam Results Vital Signs: Vital Signs Temperature 97.3 F L 09/01/18 09:10 Pulse Rate 86 09/01/18 09:10 Respiratory Rate 18 09/01/18 09:10 Blood Pressure 117/66 09/01/18 09:10 O2 Sat by Pulse Oximetry (%) - Treatment Hospital Course: Detox Protocol Followed, Detoxed Safely, Responded well, Discharged Condition Good, Rehab Referral Accepted - Medication Discharge Medications: Ambulatory Orders NK [No Known Home Medication] 06/08/18 - Diagnosis (1) Alcohol dependence with uncomplicated withdrawal Current Visit: Yes Status: Chronic (2) Bipolar I disorder, most recent episode depressed Current Visit: No Status: Acute (3) Opioid dependence with withdrawal Current Visit: Yes Status: Chronic (4) Opioid-induced sleep disorder Current Visit: No Status: Acute (5) Substance induced mood disorder Current Visit: No Status: Acute (6) Weight loss Current Visit: Yes Status: Chronic (7) Asthma Current Visit: Yes Status: Chronic (8) Cocaine dependence, uncomplicated Current Visit: Yes Status: Chronic (9) Insomnia Current Visit: No Status: Chronic Qualifiers: Insomnia type: unspecified Qualified Code(s): G47.00 - Insomnia, unspecified (10) Nicotine dependence Current Visit: Yes Status: Chronic Qualifiers: Nicotine product type: cigarettes Substance use status: uncomplicated Qualified Code(s): F17.210 - Nicotine dependence, cigarettes, uncomplicated (11) Sedative/hypnotic withdrawal without complication Current Visit: Yes Status: Chronic (12) Bipolar I disorder Current Visit: No Status: Suspected - AMA Did Patient Leave Against Medical Advice: No (referred to [address] [place] [address] rehab)
--- NOTE | 2018-09-01 14:10 | PN ---
[facility] Progress Note Note: Pt had a long conversation with RN, counselor and television writer regarding his goals to the services he is able to get while still under our care. 1.Pt was offered to be followed by the [facility] for treatment for his HIV dx once the results are back and the confirmatory is back...pt agreed to get the help. 2. pt was offered to be followed by [facility] program for his continued treatment and risk of relapse if he has no continuity of care and pt agreed to resume treatment in rehab for this and all his treatment. 3. Pt insisted he did not want to go back to the streets and go back to the [place] because he will relapse so he agreed to all the above treatment. 4. pt was referred to [facility] rehab as per his request. Pt did not hesitate to start rehab treatment and continuity of care.
[2018-09-01] MEDS ORDERED: chlordiazePOXIDE HCL 10 MG CAPSULE PO SCH (23:00)
[2018-09-02] MEDS ORDERED: diazePAM 5 MG TABLET PO SCH (06:00)
[2018-09-02] MEDS ORDERED: METHADONE HCL 5 MG TABLET (FOR DETOX USE ONLY) PO ONE (06:00)
== END 2018-09-01 11:35 | disposition other institution (70) | DRG 773 ==
LOC: YASAS 14:19 → Y6N 21:26
PROVIDERS: ADMIT Surgery; ATTEND Surgery
PROC: HZ2ZZZZ Detoxification Services for Substance Abuse Treatment (ICD-10-PCS; principal; 2018-08-29)
DX: F11.23 Opioid dependence with withdrawal (principal); F10.230 Alcohol dependence with withdrawal, uncomplicated; F14.20 Cocaine dependence, uncomplicated; F17.210 Nicotine dependence, cigarettes, uncomplicated; F19.282 Other psychoactive substance dependence with psychoactive substance-induced sleep disorder; F19.24 Other psychoactive substance dependence with psychoactive substance-induced mood disorder; F31.30 Bipolar disorder, current episode depressed, mild or moderate severity, unspecified; Z21 Asymptomatic human immunodeficiency virus [HIV] infection status; R63.4 Abnormal weight loss; Z68.22 Body mass index [BMI] 22.0-22.9, adult
CPT/HCPCS: 36415; 80053; 85025; 86593; 87389; J0475; J0735

== ENCOUNTER 2018-09-01 11:50 | Inpatient (IN) | payer OTHER ==
[2018-09-01] MEDS ORDERED: MAGNESIUM CITRATE 300 ML BOTTLE PO PRN (13:27)
[2018-09-01] MEDS ORDERED: ACETAMINOPHEN 325 MG TABLET (FP) PO PRN (13:27)
[2018-09-01] MEDS ORDERED: MAGNESIUM HYDROX 2400MG/30ML ORAL SUSPENSION 30 ML CUP PO PRN (13:27)
[2018-09-01] MEDS ORDERED: IBUPROFEN 400 MG TABLET (FP) PO PRN (13:27)
[2018-09-01] MEDS ORDERED: MAG HYDROX/AL HYDROX/SIMETH 30 ML UNIT-DOSE CUP PO PRN (13:27)
[2018-09-01] MEDS ORDERED: MENTHOL/PHENOL 1 EACH UD MM PRN (13:27)
[2018-09-01] MEDS ORDERED: P-EPHED 60MG/TRIPROLIDI 2.5MG TABLET PO PRN (13:27)
[2018-09-01] MEDS ORDERED: guaiFENesin 200 MG/10 ML 10 ML UNIT-DOSE CUPS PO PRN (13:27)
[2018-09-01] MEDS ORDERED: LOPERAMIDE HCL 2 MG CAPSULE PO PRN (13:27)
--- NOTE | 2018-09-01 13:27 | HP ---
[facility] Rehab Assess/Revision - Admission History Admitted to Rehab from: [facility] Galleg[facility] Date of Admission to Rehab: 09/01/18 - Findings Detox History & Physical reviewed: Yes Concur with findings: Yes Inpatient Rehab Admission - Rehab Decision to Admit Inpatient rehab admission?: Yes - Initial Determination Are CD services needed?: Yes Free of communicable disease: Yes Not in need of hospitalization: Yes - Rehab Admission Criteria Previous failed treatment: Yes Poor recovery environment: Yes Comorbidities: Yes Lacks judgement: Yes Patient is meeting Inpatient Rehab admission criteria:: Yes
[2018-09-01] MEDS: cloNIDine HCL 0.1 MG TABLET PO PRN (14:24)
--- NOTE | 2018-09-01 15:41 | PN ---
[facility] Progress Note Note: Client has agreed to stay. However, he has been labile in his emotions and decisions. Client had a preliminary HIV test-results undetermined, was seen by someone at the [facility]. PE: alert, oriented, full ROM. Awaiting vital signs. Client was informed of the medications he could take to treat the symptoms of withdrawal and he agrees to same. Will continue to monitor.
[2018-09-01] MEDS ORDERED: THIAMINE HCL 100 MG TABLET (FP) PO SCH (22:00)
[2018-09-01] MEDS ORDERED: MELATONIN 5 MG TABLETS PO PRN (22:00)
[2018-09-02 06:41] VITALS: TEMP 97.4
[2018-09-02] MEDS: cloNIDine HCL 0.1 MG TABLET PO PRN (07:21)
[2018-09-02] MEDS ORDERED: PRENATAL VITAMINS W/ FOLIC ACID TABLET (FP) PO SCH (10:00)
[2018-09-02] MEDS ORDERED: NICOTINE 21 MG/24 HOURS TOPICAL PATCH TD SCH (10:00)
[2018-09-02] MEDS: CYCLOBENZAPRINE HCL 10 MG TABLET (FP) PO PRN ×2 (10:05→15:05)
[2018-09-02 15:01] VITALS: BP 124/69; PULSE 73
--- NOTE | 2018-09-02 17:03 | PN ---
[facility] Progress Note Note: DISCHARGE SUMMARY Pt refused to sign AMA, pt just walked off the unit at 4:10pm. Pt refused to talk to the practitioner and walked off the unit. Pt has appt on 09/06/18 at [facility] for infectious disease. No distress noted. Unable to do any assessment on the pt. and also find out about his aftercare CD treatment program. Vital Signs 09/02/18 15:00 Pulse Rate 73 Blood Pressure 124/69 Vital Signs (72 hours) 09/02/18 09/02/18 09/02/18 00:30 03:30 06:40 Temperature 97.4 F L Pulse Rate 64 Respiratory 18 18 16 Rate Blood Pressure 130/70 09/02/18 15:00 Temperature Pulse Rate 73 Respiratory Rate Blood Pressure 124/69 Plan:follow-up with Infectious disease at [facility] on 09/06/18 at 10AM.
== END 2018-09-02 16:20 | disposition left against medical advice (07) | DRG 770 ==
LOC: YASAS 11:50 → Y3W 11:51
PROVIDERS: ADMIT Neuromusculoskeletal Medicine & OMM; ATTEND Neuromusculoskeletal Medicine & OMM
PROC: HZ2ZZZZ Detoxification Services for Substance Abuse Treatment (ICD-10-PCS; principal; 2018-09-01)
DX: F10.230 Alcohol dependence with withdrawal, uncomplicated (principal); F14.20 Cocaine dependence, uncomplicated; F17.210 Nicotine dependence, cigarettes, uncomplicated; J45.909 Unspecified asthma, uncomplicated
CPT/HCPCS: J0735

== ENCOUNTER 2021-02-19 12:56 | Inpatient (IN) | payer OTHER ==
[2021-02-19 15:52] VITALS: BMI 25.0
[2021-02-19] MEDS ORDERED: MAGNESIUM HYDROX 2400MG/30ML ORAL SUSPENSION 30 ML CUP PO PRN (17:29)
[2021-02-19] MEDS ORDERED: ACETAMINOPHEN 325 MG TABLET (FP) PO PRN ×2 (17:29)
[2021-02-19] MEDS ORDERED: methaDONE HCL 10 MG TABLET (FOR DETOX USE ONLY) PO ONE (17:29)
[2021-02-19] MEDS ORDERED: ONDANSETRON *ODT* 4 MG TABLET SL PRN (17:29)
[2021-02-19] MEDS ORDERED: IBUPROFEN 400 MG TABLET (FP) PO PRN (17:29)
[2021-02-19] MEDS ORDERED: NALOXONE (NARCAN) HCL 4 MG/0.1 ML SPRAY NS PRN (17:29)
[2021-02-19] MEDS ORDERED: BISMUTH SUBSALICYLATE 524 MG/30 ML PO PRN (17:29)
[2021-02-19] MEDS ORDERED: NICOTINE 10 MG CARTRIDGE (INHALER) IH PRN (17:29)
[2021-02-19] MEDS ORDERED: MENTHOL/PHENOL 1 EACH UD MM PRN (17:29)
[2021-02-19] MEDS ORDERED: MAG HYDROX/AL HYDROX/SIMETH 30 ML UNIT-DOSE CUP PO PRN (17:29)
[2021-02-19] MEDS ORDERED: cloNIDine HCL 0.1 MG TABLET PO PRN (17:29)
[2021-02-19] MEDS ORDERED: METHOCARBAMOL 500 MG TABLET PO PRN (17:29)
[2021-02-19] MEDS ORDERED: MAGNESIUM CITRATE 300 ML BOTTLE PO PRN (17:29)
[2021-02-19] MEDS ORDERED: methaDONE HCL 10 MG TABLET (FOR DETOX USE ONLY) ONE (20:54)
[2021-02-19] MEDS ORDERED: hydrOXYzine PAMOATE 25 MG CAPSULE (FP) PO ONE (20:54)
[2021-02-19] MEDS ORDERED: diazePAM 5 MG TABLET ONE (20:54)
[2021-02-19] MEDS: diazePAM 5 MG TABLET PO SCH ×2 (20:56→22:03)
[2021-02-19] MEDS: hydrOXYzine PAMOATE 25 MG CAPSULE (FP) PO SCH ×2 (20:57→22:05)
[2021-02-19] MEDS: THIAMINE HCL 100 MG TABLET (FP) PO SCH (22:02)
[2021-02-19] MEDS: MELATONIN 5 MG TABLETS PO SCH (22:04)
[2021-02-20] MEDS: diazePAM 5 MG TABLET PO SCH ×5 (05:46→23:25)
[2021-02-20] MEDS: hydrOXYzine PAMOATE 25 MG CAPSULE (FP) PO SCH ×5 (07:00→23:25)
[2021-02-20] MEDS ORDERED: methaDONE HCL 10 MG TABLET (FOR DETOX USE ONLY) ONE (08:49)
[2021-02-20 10:53] LABS: HEMATOCRIT 35.3 % (35.4-49); HEMOGLOBIN 11.6 GM/dL (11.7-16.9); MCH 28.6 pg (25.7-33.7); MEAN CELL VOLUME 86.9 fl (80-96); MEAN PLT VOLUME 8.1 fl (7.5-11.1); PLATELET COUNT 286 10^3/uL (134-434); RBC 4.06 M/mm3 (4.00-5.60); RDW 13.3 % (11.9-15.9); WHITE BLOOD COUNT 8.3 K/mm3 (4.0-10.0)
[2021-02-20 11:00] LABS: ALBUMIN 3.4 g/dl (3.4-5.0); BLOOD UREA NITROGEN 6.8 mg/dL (7-18); CALCIUM 8.7 mg/dL (8.5-10.1)
[2021-02-20 11:04] LABS: BILIRUBIN,TOTAL 0.7 mg/dL (0.2-1); TOT PROT 7.3 g/dl (6.4-8.2)
[2021-02-20 11:08] LABS: CREATININE 0.5 mg/dL (0.55-1.3)
[2021-02-20] MEDS: SODIUM CHLORIDE NASAL SPRAY 44 ML BOTTLE NS SCH ×2 (13:14→23:25)
[2021-02-20] MEDS: diazePAM 5 MG TABLET PO PRN (15:26)
[2021-02-20 21:20] VITALS: TEMP 98.2
[2021-02-20] MEDS: MELATONIN 5 MG TABLETS PO SCH (23:25)
[2021-02-20] MEDS: THIAMINE HCL 100 MG TABLET (FP) PO SCH (23:36)
[2021-02-21] MEDS: diazePAM 5 MG TABLET PO PRN (02:31)
[2021-02-21] MEDS ORDERED: diazePAM 5 MG TABLET PO SCH (06:00)
[2021-02-21] MEDS: hydrOXYzine PAMOATE 25 MG CAPSULE (FP) PO SCH (07:00)
[2021-02-21] MEDS: SODIUM CHLORIDE NASAL SPRAY 44 ML BOTTLE NS SCH (07:00)
[2021-02-21 07:13] VITALS: BP 119/59; PULSE 59
[2021-02-21] MEDS ORDERED: MASKS NR ONE (08:50)
[2021-02-21] MEDS ORDERED: methaDONE HCL 10 MG TABLET (FOR DETOX USE ONLY) PO ONE (10:00)
[2021-02-22] MEDS ORDERED: diazePAM 5 MG TABLET PO SCH (06:00)
[2021-02-23] MEDS ORDERED: diazePAM 5 MG TABLET PO ONE (06:00)
[2021-02-23] MEDS ORDERED: methaDONE HCL 10 MG TABLET (FOR DETOX USE ONLY) PO ONE (10:00)
== END 2021-02-21 08:53 | disposition left against medical advice (07) | DRG 770 ==
LOC: YASAS 12:56 → Y6N 21:22
PROVIDERS: ADMIT Allergy & Immunology; ATTEND Allergy & Immunology
PROC: HZ2ZZZZ Detoxification Services for Substance Abuse Treatment (ICD-10-PCS; principal; 2021-02-19)
DX: F11.23 Opioid dependence with withdrawal (principal); F10.230 Alcohol dependence with withdrawal, uncomplicated; F10.220 Alcohol dependence with intoxication, uncomplicated; F13.230 Sedative, hypnotic or anxiolytic dependence with withdrawal, uncomplicated; F14.20 Cocaine dependence, uncomplicated; I10 Essential (primary) hypertension; J45.909 Unspecified asthma, uncomplicated; Z87.891 Personal history of nicotine dependence
CPT/HCPCS: 36415; 80053; 85027; 86780; C9803; J0735; U0003; U0005

== ENCOUNTER 2022-09-21 10:38 | Inpatient (IN) | payer OTHER ==
[2022-09-21 11:16] VITALS: BMI 21.2
[2022-09-21] MEDS ORDERED: BENZONATATE 200 MG CAPSULE PO PRN (12:05)
[2022-09-21] MEDS ORDERED: NICOTINE POLACRILEX 2 MG GUM BUC PRN (12:05)
[2022-09-21] MEDS ORDERED: IBUPROFEN 400 MG TABLET (FP) PO PRN (12:05)
[2022-09-21] MEDS ORDERED: guaiFENesin 600 MG TABLET.ER (FP) PO PRN (12:05)
[2022-09-21] MEDS ORDERED: NALOXONE HCL 0.4 MG/ML VIAL IM PRN (12:05)
[2022-09-21] MEDS ORDERED: COLLOIDAL OATMEAL 1 BAR EACH TP PRN (12:05)
[2022-09-21] MEDS ORDERED: POLYETHYLENE GLYCOL (HEALTHYLAX) 3350 17 GM PACKET PO PRN (12:05)
[2022-09-21] MEDS ORDERED: cloNIDine HCL 0.1 MG TABLET PO PRN (12:05)
[2022-09-21] MEDS ORDERED: BENZOCAINE/MENTHOL (CHLORASEPTIC ) LOZENGE MM PRN (12:05)
[2022-09-21] MEDS ORDERED: NALOXONE HCL (KLOXXADO) 8 MG SPRAY NS PRN (12:05)
[2022-09-21] MEDS ORDERED: ONDANSETRON *ODT* 4 MG TABLET SL PRN (12:05)
[2022-09-21] MEDS ORDERED: ACETAMINOPHEN 325 MG TABLET (FP) PO PRN (12:05)
[2022-09-21] MEDS ORDERED: AMMONIUM LACTATE 12% LOTION 225 GM BOTTLE TP PRN (12:05)
[2022-09-21] MEDS ORDERED: MAG HYDROX/AL HYDROX/SIMETH 30 ML UNIT-DOSE CUP PO PRN (12:05)
[2022-09-21] MEDS ORDERED: DICYCLOMINE HCL 10 MG CAPSULE PO PRN (12:05)
[2022-09-21] MEDS ORDERED: BISMUTH SUBSALICYLATE 262 MG/15 ML BTL PO PRN (12:05)
[2022-09-21] MEDS ORDERED: LOPERAMIDE HCL 2 MG CAPSULE PO PRN (12:05)
[2022-09-21] MEDS ORDERED: NICOTINE 10 MG CARTRIDGE (INHALER) IH PRN (12:05)
[2022-09-21] MEDS ORDERED: MAGNESIUM HYDROX 2400MG/30ML ORAL SUSPENSION 30 ML CUP PO PRN (12:05)
[2022-09-21] MEDS ORDERED: methaDONE HCL 10 MG TABLET (FOR DETOX USE ONLY) PO ONE (12:05)
[2022-09-21] MEDS ORDERED: IBUPROFEN 600 MG TABLET (FP) PO PRN (12:05)
[2022-09-21] MEDS ORDERED: chlordiazePOXIDE HCL 25 MG CAPSULE ONE (14:02)
[2022-09-21] MEDS ORDERED: methaDONE HCL 10 MG TABLET (FOR DETOX USE ONLY) ONE (14:06)
[2022-09-21] MEDS ORDERED: chlordiazePOXIDE HCL 25 MG CAPSULE PO ONE (14:10)
[2022-09-21] MEDS: chlordiazePOXIDE HCL 25 MG CAPSULE PO SCH ×3 (14:20→22:59)
[2022-09-21] MEDS: NICOTINE 21 MG/24 HOURS TOPICAL PATCH TD SCH (14:34)
[2022-09-21 17:06] LABS: HEMATOCRIT 34.1 % (35.4-49); HEMOGLOBIN 11.4 GM/dL (11.7-16.9); MCH 28.9 pg (25.7-33.7); MCHC 33.5 g/dl (32.0-35.9); MEAN CELL VOLUME 86.4 fl (80-96); MEAN PLT VOLUME 8.2 fl (7.5-11.1); PLATELET COUNT 233 10^3/uL (134-434); RBC 3.95 M/mm3 (4.00-5.60); RDW 13.1 % (11.9-15.9); WHITE BLOOD COUNT 6.9 K/mm3 (4.0-10.0)
[2022-09-21 17:20] LABS: POTASSIUM 4.4 mmol/L (3.5-5.1)
[2022-09-21 17:27] LABS: CALCIUM 8.7 mg/dL (8.5-10.1)
[2022-09-21 17:28] LABS: ALBUMIN 3.5 g/dl (3.4-5.0); BLOOD UREA NITROGEN 14.1 mg/dL (7-18)
[2022-09-21 17:31] LABS: CREATININE 0.7 mg/dL (0.55-1.3)
[2022-09-21 17:32] LABS: BILIRUBIN,TOTAL 0.4 mg/dL (0.2-1)
[2022-09-21 17:33] LABS: TOT PROT 6.9 g/dl (6.4-8.2)
[2022-09-21] MEDS: MELATONIN 5 MG TABLETS PO SCH (22:59)
[2022-09-21] MEDS: THIAMINE HCL 100 MG TABLET (FP) PO SCH (23:00)
[2022-09-22] MEDS: chlordiazePOXIDE HCL 25 MG CAPSULE PO SCH ×4 (06:09→23:04)
[2022-09-22] MEDS ORDERED: PRENATAL VITAMINS W/ FOLIC ACID TABLET (FP) PO SCH (10:00)
[2022-09-22] MEDS: NICOTINE 21 MG/24 HOURS TOPICAL PATCH TD SCH (10:31)
[2022-09-22 11:41] LABS: POTASSIUM 4.3 mmol/L (3.5-5.1)
[2022-09-22 11:42] LABS: HEMATOCRIT 34.9 % (35.4-49); HEMOGLOBIN 11.8 GM/dL (11.7-16.9); MCH 29.4 pg (25.7-33.7); MEAN CELL VOLUME 86.6 fl (80-96); PLATELET COUNT 231 10^3/uL (134-434); RBC 4.02 M/mm3 (4.00-5.60); RDW 13.1 % (11.9-15.9); WHITE BLOOD COUNT 6.2 K/mm3 (4.0-10.0)
[2022-09-22 11:45] LABS: ALBUMIN 3.7 g/dl (3.4-5.0); CALCIUM 8.7 mg/dL (8.5-10.1)
[2022-09-22 11:46] LABS: BLOOD UREA NITROGEN 10.8 mg/dL (7-18)
[2022-09-22 11:49] LABS: CREATININE 0.8 mg/dL (0.55-1.3)
[2022-09-22 11:54] LABS: BILIRUBIN,TOTAL 0.6 mg/dL (0.2-1)
[2022-09-22] MEDS: METHOCARBAMOL 500 MG TABLET PO PRN (16:37)
[2022-09-22 21:25] VITALS: BP 117/52; PULSE 53; RESP 17; TEMP 97.3
[2022-09-22] MEDS: THIAMINE HCL 100 MG TABLET (FP) PO SCH (23:05)
[2022-09-22] MEDS: MELATONIN 5 MG TABLETS PO SCH (23:05)
[2022-09-23] MEDS ORDERED: chlordiazePOXIDE HCL 25 MG CAPSULE PO SCH (05:00)
[2022-09-23] MEDS: METHOCARBAMOL 500 MG TABLET PO PRN (05:28)
[2022-09-23] MEDS ORDERED: methaDONE HCL 10 MG TABLET (FOR DETOX USE ONLY) PO ONE (10:00)
[2022-09-24] MEDS ORDERED: chlordiazePOXIDE HCL 10 MG CAPSULE PO SCH (05:00)
[2022-09-25] MEDS ORDERED: chlordiazePOXIDE HCL 10 MG CAPSULE PO SCH (05:00)
[2022-09-25] MEDS ORDERED: methaDONE HCL 10 MG TABLET (FOR DETOX USE ONLY) PO ONE (10:00)
[2022-09-26] MEDS ORDERED: chlordiazePOXIDE HCL 10 MG CAPSULE PO ONE (05:00)
== END 2022-09-23 06:59 | disposition left against medical advice (07) | DRG 770 ==
LOC: YASAS 10:38 → Y6N 13:06
PROVIDERS: ADMIT Allergy & Immunology; ATTEND Surgery
PROC: HZ2ZZZZ Detoxification Services for Substance Abuse Treatment (ICD-10-PCS; principal; 2022-09-21)
DX: F11.23 Opioid dependence with withdrawal (principal); F10.230 Alcohol dependence with withdrawal, uncomplicated; F13.230 Sedative, hypnotic or anxiolytic dependence with withdrawal, uncomplicated; F17.210 Nicotine dependence, cigarettes, uncomplicated; F31.9 Bipolar disorder, unspecified; B20 Human immunodeficiency virus [HIV] disease; G47.00 Insomnia, unspecified; R79.89 Other specified abnormal findings of blood chemistry; R63.4 Abnormal weight loss; Z68.21 Body mass index [BMI] 21.0-21.9, adult; Z86.19 Personal history of other infectious and parasitic diseases; Z87.09 Personal history of other diseases of the respiratory system
CPT/HCPCS: 36415; 80053; 85027; 86780; 87811; C9803-CS; U0003; U0005

== ENCOUNTER 2022-10-29 14:57 | Inpatient (IN) | payer OTHER ==
[2022-10-29 15:36] VITALS: BMI 22.6
[2022-10-29] MEDS ORDERED: MAG HYDROX/AL HYDROX/SIMETH 30 ML UNIT-DOSE CUP PO PRN (17:47)
[2022-10-29] MEDS ORDERED: NALOXONE HCL (KLOXXADO) 8 MG SPRAY NS PRN (17:47)
[2022-10-29] MEDS ORDERED: POLYETHYLENE GLYCOL (HEALTHYLAX) 3350 17 GM PACKET PO PRN (17:47)
[2022-10-29] MEDS ORDERED: LOPERAMIDE HCL 2 MG CAPSULE PO PRN (17:47)
[2022-10-29] MEDS ORDERED: BENZONATATE 200 MG CAPSULE PO PRN (17:47)
[2022-10-29] MEDS ORDERED: IBUPROFEN 600 MG TABLET (FP) PO PRN (17:47)
[2022-10-29] MEDS ORDERED: MAGNESIUM HYDROX 2400MG/30ML ORAL SUSPENSION 30 ML CUP PO PRN (17:47)
[2022-10-29] MEDS ORDERED: ACETAMINOPHEN 325 MG TABLET (FP) PO PRN (17:47)
[2022-10-29] MEDS ORDERED: BISMUTH SUBSALICYLATE 524 MG/30 ML PO PRN (17:47)
[2022-10-29] MEDS ORDERED: NICOTINE 10 MG CARTRIDGE (INHALER) IH PRN (17:47)
[2022-10-29] MEDS ORDERED: hydrOXYzine PAMOATE 25 MG CAPSULE (FP) PO PRN (17:47)
[2022-10-29] MEDS ORDERED: NICOTINE POLACRILEX 2 MG GUM BUC PRN (17:47)
[2022-10-29] MEDS ORDERED: ONDANSETRON *ODT* 4 MG TABLET SL PRN (17:47)
[2022-10-29] MEDS ORDERED: IBUPROFEN 400 MG TABLET (FP) PO PRN (17:47)
[2022-10-29] MEDS ORDERED: BENZOCAINE/MENTHOL (CHLORASEPTIC ) LOZENGE MM PRN (17:47)
[2022-10-29] MEDS ORDERED: guaiFENesin 600 MG TABLET.ER (FP) PO PRN (17:47)
[2022-10-29] MEDS ORDERED: DICYCLOMINE HCL 10 MG CAPSULE PO PRN (17:47)
[2022-10-29] MEDS ORDERED: NALOXONE HCL 0.4 MG/ML VIAL IM PRN (17:47)
[2022-10-29] MEDS ORDERED: ALBUTEROL SO4 HFA INHALER IH PRN (19:59)
[2022-10-29] MEDS: MELATONIN 5 MG TABLETS PO SCH (23:27)
[2022-10-29] MEDS: THIAMINE HCL 100 MG TABLET (FP) PO SCH (23:28)
[2022-10-30] MEDS ORDERED: cloNIDine HCL 0.1 MG TABLET PO PRN (09:18)
[2022-10-30] MEDS ORDERED: LORazepam 1 MG TABLET PO PRN (09:18)
[2022-10-30] MEDS ORDERED: methaDONE HCL 10 MG TABLET (FOR DETOX USE ONLY) PO ONE (09:45)
[2022-10-30] MEDS: METHOCARBAMOL 500 MG TABLET PO PRN ×2 (10:09→22:41)
[2022-10-30] MEDS: PRENATAL VITAMINS W/ FOLIC ACID TABLET (FP) PO SCH (10:09)
[2022-10-30] MEDS: LORazepam 2 MG TABLET PO SCH ×3 (10:10→22:40)
[2022-10-30 14:31] LABS: HEMATOCRIT 38.2 % (35.4-49); HEMOGLOBIN 12.2 GM/dL (11.7-16.9); MCHC 31.8 g/dl (32.0-35.9); MEAN CELL VOLUME 84.7 fl (80-96); MEAN PLT VOLUME 8.7 fl (7.5-11.1); PLATELET COUNT 214 10^3/uL (134-434); RBC 4.51 M/mm3 (4.00-5.60); RDW 13.5 % (11.9-15.9); WHITE BLOOD COUNT 7.6 K/mm3 (4.0-10.0)
[2022-10-30 14:44] LABS: POTASSIUM 4.8 mmol/L (3.5-5.1)
[2022-10-30 14:47] LABS: ALBUMIN 3.7 g/dl (3.4-5.0)
[2022-10-30 14:48] LABS: BLOOD UREA NITROGEN 11.9 mg/dL (7-18); CALCIUM 9.4 mg/dL (8.5-10.1)
[2022-10-30 14:52] LABS: TOT PROT 7.5 g/dl (6.4-8.2)
[2022-10-30 14:53] LABS: BILIRUBIN,TOTAL 0.8 mg/dL (0.2-1)
[2022-10-30 14:58] LABS: CREATININE 0.8 mg/dL (0.55-1.3)
[2022-10-30] MEDS: MELATONIN 5 MG TABLETS PO SCH (22:40)
[2022-10-30] MEDS: THIAMINE HCL 100 MG TABLET (FP) PO SCH (22:40)
[2022-10-31] MEDS: LORazepam 2 MG TABLET PO SCH ×2 (06:05→10:09)
[2022-10-31 09:53] VITALS: BP 128/63; PULSE 85; RESP 17; TEMP 97.9
[2022-10-31] MEDS: PRENATAL VITAMINS W/ FOLIC ACID TABLET (FP) PO SCH (10:09)
[2022-11-01] MEDS ORDERED: LORazepam 1 MG TABLET PO SCH (05:00)
[2022-11-01] MEDS ORDERED: methaDONE HCL 10 MG TABLET (FOR DETOX USE ONLY) PO ONE (10:00)
[2022-11-02] MEDS ORDERED: LORazepam 0.5 MG TABLET PO PRN
[2022-11-02] MEDS ORDERED: LORazepam 0.5 MG TABLET PO SCH (05:00)
[2022-11-03] MEDS ORDERED: LORazepam 0.5 MG TABLET PO ONE (05:00)
[2022-11-03] MEDS ORDERED: methaDONE HCL 10 MG TABLET (FOR DETOX USE ONLY) PO ONE (10:00)
== END 2022-10-31 10:00 | disposition left against medical advice (07) | DRG 770 ==
LOC: YASAS 14:57 → Y3N 18:11
PROVIDERS: ADMIT Allergy & Immunology; ATTEND Surgery
PROC: HZ2ZZZZ Detoxification Services for Substance Abuse Treatment (ICD-10-PCS; principal; 2022-10-29)
DX: F11.23 Opioid dependence with withdrawal (principal); F10.230 Alcohol dependence with withdrawal, uncomplicated; F14.20 Cocaine dependence, uncomplicated; F17.210 Nicotine dependence, cigarettes, uncomplicated; F31.9 Bipolar disorder, unspecified; B20 Human immunodeficiency virus [HIV] disease; I10 Essential (primary) hypertension; Z79.899 Other long term (current) drug therapy
CPT/HCPCS: 36415; 80053; 85027; 86780; 87635; 87811